=== PATIENT | male | born 1940 | race Caucasian/White ===

== ENCOUNTER → 2016-04-24 | Outpatient (CLI) | payer MEDICARE, BC ==
--- NOTE | ~2016-04-24 | CR150 ---
[facility]. [facility] A Service of [facility] & [facility] RADIOLOGY TEXT RESULTS PATIENT: JESUS PENA LOCATION: SRA : 41 UNIT #: [id number] AGE: [address]: GERI JOSHUA MD SEX: M ORDER DR: [id number] [place] [id number] O MR#: [id number] Acc #: [id number] NAME: JESUS PENA : 1940 SEX: M STUDY DATE/TIME: 04/24/2016 11:41 UNIT: SRAD ROOM: STUDY DESCRIPTION: CR Hip Min 2 Views Lt Attending Physician: Geri Joshua M.D. Ordering Physician: Physician Non-Staff Primary Care Physician: Primary Care Physician No MEDICAL IMAGING REPORT This report is preliminary unless electronic signature is present. EXAM Left hip 2 views HISTORY 75-year-old male complains of bilateral hip and groin pain for several days. No specific injury. FINDINGS AP and frog lateral views of the left hip demonstrate no fracture or dislocation. No lytic or blastic lesions. No significant arthritic changes noted. Soft tissues unremarkable except for pelvic calcifications compatible with phleboliths. IMPRESSION Negative left hip. Dictated by... Jessie Portillo M.D. THIS IS AN ELECTRONICALLY VERIFIED REPORT Jessie Portillo M.D. at 04/29/2016 1:53 PM MILLI/anna TD: 04/25/2016 09:02 JOB #: [id number] MEDICAL IMAGING REPORT Page 1 of 1
--- NOTE | ~2016-04-24 | CR151 ---
[facility] A Service [facility] RADIOLOGY TEXT RESULTS PATIENT: JESUS PENA LOCATION: SRA : 41 UNIT #: [id number] AGE: [address]: GERI JOSHUA MD SEX: M ORDER DR: [id number] [place] [id number] O MR#: [id number] Acc #: [id number] NAME: JESUS PENA : 1940 SEX: M STUDY DATE/TIME: 04/24/2016 11:41 UNIT: SRAD ROOM: STUDY DESCRIPTION: CR Hip Min 2 Views Rt Attending Physician: Geri Joshua M.D. Ordering Physician: Physician Non-Staff Primary Care Physician: Primary Care Physician No MEDICAL IMAGING REPORT This report is preliminary unless electronic signature is present. EXAM Right hip 2 views HISTORY Bilateral hip and groin pain for 4 days. No known injury. FINDINGS AP pelvis and AP and frog lateral views of the right hip submitted. Exam demonstrates no fracture or dislocation. No lytic or blastic lesions. Soft tissues unremarkable except for pelvic calcifications compatible with phleboliths. There is moderately advanced multilevel degenerative disc disease lower lumbar spine. This could be a potential contributing factor to the patient's hip pain. IMPRESSION 1. No acute pathology of the right hip. There is minimal enthesopathic changes at the lesser trochanter. 2. Moderately advanced multilevel degenerative disc disease lower lumbar spine. 1 may question whether this could be a contributing factor to the patient's clinical symptoms. Dictated by... Jessie Portillo M.D. THIS IS AN ELECTRONICALLY VERIFIED REPORT Jessie Portillo M.D. at 04/29/2016 1:53 PM AYDEES/anna TD: 04/25/2016 09:18 JOB #: [id number] [facility] A Service [facility] RADIOLOGY TEXT RESULTS PATIENT: JESUS PENA LOCATION: SRA : 41 UNIT #: [id number] AGE: [address]: GERI JOSHUA MD SEX: M ORDER DR: MEDICAL IMAGING REPORT Page 1 of 1
== END | disposition home or self-care (01) ==
LOC: SRAD 11:27
DX: M25.551 Pain in right hip (principal); M51.36 Other intervertebral disc degeneration, lumbar region
CPT/HCPCS: 73502